=== PATIENT | female | born 1990 | race Caucasian/White ===

== ENCOUNTER 2017-07-26 20:24 | Emergency (ER) | payer BC ==
--- NOTE | 2017-07-26 20:46 | ER Document Report ---
ED Medical Screen (RME) - General Chief Complaint: Back Pain Stated Complaint: LOWER BACK PAIN/PAINFUL URINATION Time Seen by Provider: 07/26/17 20:41 Notes: 26-year-old female with 3 day history of left flank pain. He notes some sharp pain at the end of the urethra following urination. There is not really frequency. She did notice dark urine a couple days ago and is now clear. She does have a past history kidney stones, last one occurring while she was . Last menstrual period 2 weeks ago. I have greeted and performed a rapid initial assessment of this patient. A comprehensive ED assessment and evaluation of the patient, analysis of test results and completion of the medical decision making process will be conducted by additional ED providers. TRAVEL OUTSIDE OF THE [place] IN LAST 30 DAYS: No - Related Data Allergies/Adverse Reactions: No Known Allergies Allergy (Verified 10/07/12 12:43) Past Medical History - Social History Chew tobacco use (# tins/day): No Frequency of alcohol use: None Drug Abuse: None - Past Medical History Cardiac Medical History: Denies: Hx Coronary Artery Disease, Hx Heart Attack, Hx Hypertension Pulmonary Medical History: Denies: Hx Asthma, Hx Bronchitis, Hx COPD, Hx Pneumonia Neurological Medical History: Denies: Hx Cerebrovascular Accident, Hx Seizures Renal/ Medical History: Reports: Hx Kidney Stones. Denies: Hx Peritoneal Dialysis Musculoskeltal Medical History: Denies Hx Arthritis Past Surgical History: Reports: Hx Gynecologic Surgery. Denies: Hx Pacemaker - Immunizations Hx Diphtheria, Pertussis, Tetanus Vaccination: Yes Physical Exam - Vital signs Vitals: Temp Pulse Resp BP Pulse Ox 98.5 F 86 18 111/70 100 07/26/17 20:34 07/26/17 20:34 07/26/17 20:34 07/26/17 20:34 07/26/17 20:34 Course - Vital Signs Vital signs: Temp Pulse Resp BP Pulse Ox 98.5 F 86 18 111/70 100 07/26/17 20:34 07/26/17 20:34 07/26/17 20:34 07/26/17 20:34 07/26/17 20:34
[2017-07-26 20:57] LABS: APPEARANCE,URINE CLEAR; BILIRUBIN,URINE NEGATIVE (NEGATIVE); GLUCOSE, URINE NEGATIVE (NEGATIVE); KETONES,URINE NEGATIVE (NEGATIVE); LEUKOCYTE ESTERASE,URINE TRACE (NEGATIVE); NITRITE,URINE NEGATIVE (NEGATIVE); PROTEIN,URINE NEGATIVE (NEGATIVE); URINE SPECIFIC GRAVITY 1.002; UROBILINOGEN,URINE NEGATIVE mg/dL (<2.0)
[2017-07-26] MEDS ORDERED: PHENAZOPYRIDINE HCL 200 MG TABLET PO ONE (22:07)
[2017-07-26] MEDS ORDERED: CEPHALEXIN 500 MG CAPSULE PO ONE (22:07)
--- NOTE | 2017-07-26 22:14 | ER Document Report ---
ED GI/ - General Chief Complaint: Back Pain Stated Complaint: LOWER BACK PAIN/PAINFUL URINATION Time Seen by Provider: 07/26/17 20:41 Notes: The patient is a 26-year-old female who presents with 2 days of suprapubic pain and left flank pain. She is also having painful urination. Patient denies nausea, vomiting, fevers, hematuria, colicky pain, vaginal discharge, vaginal bleeding, diarrhea or constipation. TRAVEL OUTSIDE OF THE [place] IN LAST 30 DAYS: No - Related Data Allergies/Adverse Reactions: No Known Allergies Allergy (Verified 10/07/12 12:43) Past Medical History - General Information source: Patient - Social History Smoking Status: Never Smoker Chew tobacco use (# tins/day): No Frequency of alcohol use: None Drug Abuse: None Family History: Reviewed & Not Pertinent Patient has suicidal ideation: No Patient has homicidal ideation: No - Past Medical History Cardiac Medical History: Denies: Hx Coronary Artery Disease, Hx Heart Attack, Hx Hypertension Pulmonary Medical History: Denies: Hx Asthma, Hx Bronchitis, Hx COPD, Hx Pneumonia Neurological Medical History: Denies: Hx Cerebrovascular Accident, Hx Seizures Renal/ Medical History: Reports: Hx Kidney Stones. Denies: Hx Peritoneal Dialysis Musculoskeltal Medical History: Denies Hx Arthritis Past Surgical History: Reports: Hx Gynecologic Surgery. Denies: Hx Pacemaker - Immunizations Hx Diphtheria, Pertussis, Tetanus Vaccination: Yes Review of Systems - Review of Systems Notes: REVIEW OF SYSTEMS: CONSTITUTIONAL: -fevers, -chills EENT: -eye pain, -difficulty swallowing, -nasal congestion CARDIOVASCULAR:-chest pain, -syncope. RESPIRATORY: -cough, -SOB GASTROINTESTINAL: +suprapubic abdominal pain, -nausea, -vomiting, -diarrhea GENITOURINARY: +dysuria, -hematuria MUSCULOSKELETAL: +left flank pain, -neck pain SKIN: -rash or skin lesions. HEMATOLOGIC: -easy bruising or bleeding. LYMPHATIC: -swollen, enlarged glands. NEUROLOGICAL: -altered mental status or loss of consciousness, -headache, - neurologic symptoms PSYCHIATRIC: -anxiety, -depression. ALL OTHER SYSTEMS REVIEWED AND NEGATIVE. Physical Exam - Vital signs Vitals: Temp Pulse Resp BP Pulse Ox 98.5 F 86 18 111/70 100 07/26/17 20:34 07/26/17 20:34 07/26/17 20:34 07/26/17 20:34 07/26/17 20:34 - Notes Notes: PHYSICAL EXAMINATION: GENERAL: Well-appearing, well-nourished and in no acute distress. HEAD: Atraumatic, normocephalic. EYES: Pupils equal round and reactive to light, extraocular movements intact, sclera anicteric, conjunctiva are normal. ENT: nares patent, oropharynx clear without exudates. Moist mucous membranes. NECK: Normal range of motion, supple without lymphadenopathy LUNGS: Breath sounds clear to auscultation bilaterally and equal. No wheezes rales or rhonchi. HEART: Regular rate and rhythm without murmurs ABDOMEN: Soft, mild suprapubic tenderness, normoactive bowel sounds. No guarding, no rebound. No masses appreciated. BACK: Left CVA tenderness. EXTREMITIES: Normal range of motion, no pitting or edema. No cyanosis. NEUROLOGICAL: Cranial nerves grossly intact. Normal speech, normal gait. Normal sensory and motor exams. PSYCH: Normal mood, normal affect. SKIN: Warm, Dry, normal turgor, no rashes or lesions noted. Course - Re-evaluation Re-evalutation: Patient appears very well. She has left CVA tenderness with evidence of UTI on her urinalysis. Will treat her for pyelonephritis with Keflex and follow-up with her primary care physician. She is not . Given strict return precautions and she understands. - Vital Signs Vital signs: Temp Pulse Resp BP Pulse Ox 98.6 F 72 18 98/68 L 100 07/26/17 22:40 07/26/17 22:40 07/26/17 22:40 07/26/17 22:40 07/26/17 22:40 - Laboratory Laboratory results interpreted by me: 07/26/17 20:35 Urine Blood SMALL H Ur Leukocyte Esterase TRACE H Discharge - Discharge Clinical Impression: Pyelonephritis Condition: Stable Disposition: HOME, SELF-CARE Additional Instructions: PYELONEPHRITIS: Your evaluation shows evidence of pyelonephritis. This is an infection in the kidney. Typical symptoms are fever, pain in the flank, pain on urination, and frequent urination. Many cases of pyelonephritis can be treated at home. Hospital care may be necessary for patients who are very ill, or elderly or . Pyelonephritis is treated with antibiotics. Be sure to take all the medication as prescribed. Drink plenty of liquids (about three quarts per day) . You may take acetaminophen for fever. You should feel significantly improved within two days. You should have a recheck of your urine in about one week to insure that the infection is gone. Return for a re-examination if your symptoms worsen in any way -- such as high fever, shaking chills, severe weakness or dizziness, severe pain, or inability to pass your urine. ANTIBIOTIC THERAPY: You have been given an antibiotic prescription. It's important that you take all the medication, unless instructed otherwise by your physician. Failure to complete the entire course can result in relapse of your condition. Common side effects of antibiotics include nausea, intestinal cramping, or diarrhea. Women may develop vaginal yeast infections, and babies can get yeast (thrush) in the mouth following the use of antibiotics. Contact your physician if you develop significant side effects from this medication. Allergy to this antibiotic can result in hives, wheezing, faintness, or itching. If symptoms of allergy occur, stop the medication and call the doctor. CEPHALEXIN: The antibiotic you've been prescribed is a member of the cephalosporin class. This type of antibiotic covers a wide variety of infections, including those of the skin, lungs, and urinary tract. It's useful for staph infections. This antibiotic is slightly similar to the penicillin family. In rare cases , a person who is allergic to penicillin will also be allergic to this medication. If you have had a severe allergic reaction to penicillin, and have not taken this antibiotic since that time, notify your doctor. Antibiotics which cover many germs ("broad spectrum" antibiotics) are more likely to cause diarrhea or "yeast" infections. Women prone to vaginal yeast problems may suffer an attack after taking this antibiotic. In infants, oral thrush (white spots "stuck" on the cheek) or yeast diaper rash may result. See your doctor if these problems occur. Call at once if you develop itching, hives , shortness of breath, or lightheadedness. USE OF ACETAMINOPHEN (Tylenol): Acetaminophen may be taken for pain relief or fever control. It's much safer than aspirin, offering a wider range of "safe" dosages. It is safe during . Some brand names are Tylenol, Panadol, Datril, Anacin 3, Tempra, and Liquiprin. Acetaminophen can be repeated every four hours. The following are maximum recommended dosages: >89 pounds or adults 650 mg to 900 mg Acetaminophen can be repeated every four hours. Maximum dose not to exceed 4000 mg a day. FOLLOW-UP CARE: If you have been referred to a physician for follow-up care, call the physician s office for an appointment as you were instructed or within the next two days. If you experience worsening or a significant change in your symptoms, notify the physician immediately or return to the Emergency Department at any time for re-evaluation. Prescriptions: Cephalexin Monohydrate [Keflex 500 mg Capsule] 500 mg PO TID 7 Days capsule Phenazopyridine HCl [Pyridium 200 mg Tablet] 200 mg PO TID #15 tablet
[2017-07-26 22:42] VITALS: BP 98/68
== END 2017-07-26 22:42 | disposition home or self-care (01) ==
LOC: ER 20:24
DX: N12 Tubulo-interstitial nephritis, not specified as acute or chronic (principal)
CPT/HCPCS: 99283; 81025; 81001; J3490

== ENCOUNTER 2020-06-08 04:34 | Emergency (ER) | payer BC, OTHER ==
[2020-06-08] MEDS ORDERED: ONDANSETRON HCL INJ/PF 4 MG/2 ML SDV IV ONE (05:09)
[2020-06-08] MEDS ORDERED: NORMAL SALINE 1000 ML 1,000 ML IV ONE (05:09)
[2020-06-08] MEDS ORDERED: MORPHINE SULFATE 10 MG/ML INJ IV ONE (05:09)
--- NOTE | 2020-06-08 05:15 | ER Document Report ---
ED GI/ - General TRAVEL OUTSIDE OF THE [place] IN LAST 30 DAYS: No <KYRA MORALES - Last Filed: 06/08/20 08:07> <RICKIEMATIASLUTHER - Last Filed: 06/08/20 09:47> - General Chief Complaint: Abdominal Pain Stated Complaint: ABDOMINAL PAIN Time Seen by Provider: 06/08/20 04:59 Primary Care Provider: JOSE CARLOS HUIZAR MD [ACTIVE STAFF] - Follow up as needed DARRIAN BARBA MD [ACTIVE STAFF] - Follow up as needed - HPI Notes: Patient is a 21-year-old female with a history of endometriosis who presents with severe abdominal pain that began 6 hours ago. She describes the pain as sharp to her mid epigastrium. Patient endorses nausea, multiple episodes of vomiting, and diarrhea. She denies hematemesis, hematochezia, fever, chills, chest pain, and shortness of breath. Patient states she delivered a baby 8 weeks ago. Patient has a history of a laparotomy done in 2012 for her endometriosis. She reports eating a salad around 6:30PM this evening and denies any NSAID use. (KYRA MORALES) - Related Data Allergies/Adverse Reactions: No Known Allergies Allergy (Verified 10/07/12 12:43) Past Medical History - General Information source: Patient - Social History Smoking Status: Never Smoker Chew tobacco use (# tins/day): No Frequency of alcohol use: None Drug Abuse: None Family History: Reviewed & Not Pertinent Patient has homicidal ideation: No - Past Medical History Cardiac Medical History: Denies: Hx Coronary Artery Disease, Hx Heart Attack, Hx Hypertension Pulmonary Medical History: Denies: Hx Asthma, Hx Bronchitis, Hx COPD, Hx Pneumonia Neurological Medical History: Denies: Hx Cerebrovascular Accident, Hx Seizures Renal/ Medical History: Reports: Hx Kidney Stones. Denies: Hx Peritoneal Dialysis Musculoskeletal Medical History: Denies Hx Arthritis Past Surgical History: Reports: Hx Gynecologic Surgery. Denies: Hx Pacemaker - Immunizations Hx Diphtheria, Pertussis, Tetanus Vaccination: Yes <KYRA MORALES - Last Filed: 06/08/20 08:07> Review of Systems - Review of Systems Constitutional: No symptoms reported EENT: No symptoms reported Cardiovascular: No symptoms reported Respiratory: No symptoms reported Gastrointestinal: See HPI Genitourinary: No symptoms reported Female Genitourinary: No symptoms reported Musculoskeletal: No symptoms reported Skin: No symptoms reported Hematologic/Lymphatic: No symptoms reported Neurological/Psychological: No symptoms reported <ANDREWJAILENE McdowellKYRA M - Last Filed: 06/08/20 08:07> Physical Exam <KYRA MORALES - Last Filed: 06/08/20 08:07> - Vital signs Vitals: Temp 97.8 F 06/08/20 04:42 - Notes Notes: PHYSICAL EXAMINATION: VITALS: Vitals reviewed and within normal limits. GENERAL: Patient is tearful sitting up in bed clutching her abdomen. She is in moderate distress. HEAD: Atraumatic, normocephalic. EYES: Pupils equal, round, and reactive to light, extraocular movements intact, sclera anicteric, conjunctiva are normal. ENT: Nares patent. Moist mucous membranes. Oropharynx clear without exudates. NECK: Normal range of motion, supple without lymphadenopathy. LUNGS: Breath sounds clear to auscultation bilaterally and equal. No wheezes rales or rhonchi. HEART: Regular, rate, and rhythm without murmurs. ABDOMEN: Soft abdomen with normoactive bowel sounds. Tenderness to palpation to the right upper quadrant and epigastrium. Negative Olivera sign, negative McBurney's. No masses appreciated. EXTREMITIES: Normal range of motion, no pitting or edema. No cyanosis. NEUROLOGICAL: No focal neurological deficits. Moves all extremities sponta neously and on command. PSYCH: Normal mood, normal affect. SKIN: Warm, Dry, normal turgor, no rashes or lesions noted. (KYRA MORALES) Course - Laboratory Result Diagrams: 06/08/20 05:01 06/08/20 05:01 <ANDREWJAILENE McdowellKYRA M - Last Filed: 06/08/20 08:07> - Laboratory Result Diagrams: 06/08/20 05:01 06/08/20 05:01 - Diagnostic Test Radiology reviewed: Reports reviewed <LUTHER DAMIAN - Last Filed: 06/08/20 09:47> - Re-evaluation Re-evalutation: Patient is a 29-year-old female who presents with severe abdominal pain, nausea, and vomiting. Vital signs are within normal limits. On exam, patient is in moderate distress with tenderness to palpation to the right upper quadrant and midepigastrium. Negative Olivera's and McBurney sign. 1 L of normal saline, 4 mg IV morphine and 4 mg IV Zofran ordered. WBC elevated at 16.5. CMP negative and all values are within normal limits. Lipase normal at 64.5. Serum HCG negative. 06/08/20 07:22 I re-examined the patient. She is feeling better but still continues to have pain. On exam, tenderness to palpation to the mid epigastrum. US and UA still pending. 06/08/20 07:32 US Abdomen is negative. Will order 20mg IV Pepcid and CT abd/pelvis w/IV contrast for further evaluation as patient continues to be tender. 06/08/20 08:00 Hand off and sign out to Luther Damian NP. (KYRA MORALES) 06/08/20 09:01 CT suggestive of inflammatory bowel disease. Patient reports that she is always had issues with her bowels but chalked it up to a lot of stress. Patient reports that she does have a family history of Crohn's. I did advise her to follow-up with a fire sprinkler fitter. We will provide her with referrals for fire sprinkler fitter here in the area. Patient is sitting upright in no acute distress. Patient does report having mild tenderness to the epigastric region that is worse with coughing, deep breathing and position change that involves using the abdominal muscles. Abdomen is soft and unremarkable. 06/08/20 09:47 Patient was discharged from the emergency department no acute distress. Patient is not tachycardic, febrile or hypotensive. Patient did tolerate ice chips prior to discharge. (LUTHER DAMIAN) - Vital Signs Vital signs: Temp Pulse Resp BP Pulse Ox 97.8 F 77 16 108/61 100 06/08/20 04:44 06/08/20 09:28 06/08/20 09:28 06/08/20 09:28 06/08/20 09:28 - Laboratory Laboratory results interpreted by me: 06/08/20 05:01 WBC 16.5 H RBC 5.39 H MCH 26.9 L RDW 14.5 H Lymph % (Auto) 5.9 L Absolute Neuts (auto) 14.8 H Seg Neutrophils % 89.5 H - Diagnostic Test Radiology results interpreted by me: 06/08/20 08:49 Abdomen Ultrasound 06/08/20 05:08 IMPRESSION: Unremarkable exam. Abdomen/Pelvis CT 06/08/20 07:30 IMPRESSION: 1. Long segment wall thickening involving the terminal ileum with small volume pelvic ascites. Findings suggestive of enteritis with inflammatory bowel diseases included in the differential (Crohn's disease). 2. Normal appendix. (LUTHER DAMIAN) Discharge <KYRA MORALES - Last Filed: 06/08/20 08:07> <LUTHER DAMIAN - Last Filed: 06/08/20 09:47> - Discharge Clinical Impression: Gastroenteritis Nausea & vomiting Qualifiers: Vomiting type: unspecified Vomiting Intractability: non-intractable Qualified Code(s): R11.2 - Nausea with vomiting, unspecified Condition: Stable Disposition: HOME, SELF-CARE Instructions: Abdominal Pain ([facility]), Clear Liquid Diet ([facility]), Intravenous (IV) Fluids ([facility]) Additional Instructions: *Today are seen the emergency department for abdominal pain. We did obtain an ultrasound as well as a CAT scan. Your gallbladder and appendix unremarkable. Did note that you had some inflammation within the bowels as well as inflammatory bowel disease. You do need to follow-up with a fire sprinkler fitter for further evaluation, especially due to the fact that you have a history of Crohn's within the family. Over the next 24 hours start out with a clear liquid diet and advance as tolerated. Please return the emergency department if you develop any of the below symptoms to include worsening pain, uncontrollable vomiting and diarrhea, fever or any new or worsening symptoms. Gastroenteritis You most likely have gastroenteritis. This is an irritation of the stomach and intestinal tract. It's usually caused by a virus, but can also be caused by bacteria, toxins that cause food poisoning, or excessive alcohol intake. Symptoms may include fever, painful abdominal cramps, nausea, vomiting, and diarrhea. Start with small amounts (two to six ounces) of clear liquids (soft drinks, herb teas, broth, etc). Try to take fluids frequently even if you are vomiting, to prevent dehydration. When liquids are being consumed successfully, advance to small amounts of bland food (mashed potato, toast) for 6 - 12 hours. Gastroenteritis rarely requires medication. It goes away by itself. Use good handwashing so you don't spread germs. Wash underwear in very hot water. If symptoms are severe, talk to the doctor. Call your physician if blood appears in your vomitus or stool, if vomiting lasts longer than 24 hours, if the abdominal pain worsens or becomes localized to one area, or if you develop high fever. Abdominal Pain There are many causes of abdominal pain. Pain can mean a serious problem requiring surgery (such as appendicitis). It can also be an innocent problem that goes away on its own (such as a viral infection). Often, time must pass to determine the cause of pain. The physician does not feel that hospitalization is necessary, at present. Things may change within the next 24 hours. Call the doctor or come back for re- examination if any problems occur, such as: (1) Pain that becomes more severe, steady, or becomes concentrated in one specific area. Also, pain that is more severe with movement or coughing. (2) Vomiting that persists or becomes more frequent. (3) Blood in the vomitus, urine, or bowel movements. Blood in the stool may have a tarry or black appearance. (4) Shaking chills or fever greater than 100 degrees F. (5) The abdomen becomes more distended or swollen. (6) Bowel movements cease. (7) Failure to improve as expected. Prescriptions: Dicyclomine HCl [Bentyl 20 mg Tablet] 20 mg PO QID PRN #30 tablet PRN Reason: Famotidine [Pepcid] 20 mg PO DAILY #30 tablet Promethazine HCl [Phenergan 25 mg Tablet] 1 tab PO Q6H PRN #15 tablet PRN Reason: Ondansetron [Zofran Odt 4 mg Tablet] 1 tab PO Q4H PRN #15 tab.rapdis PRN Reason: For Nausea/Vomiting Forms: Parent Work Note Referrals: JOSE CARLOS HUIZAR MD [ACTIVE STAFF] - Follow up as needed DARRIAN BARBA MD [ACTIVE STAFF] - Follow up as needed
[2020-06-08 05:38] LABS: ABSOLUTE MONOCYTES (AUTO) 0.7 10^3/uL (0.1-1.4); ABSOLUTE NEUT (AUTO) 14.8 10^3/uL (1.7-8.2); BASOPHILS % (AUTO) 0.3 % (0-2); EOSINOPHILS % (AUTO) 0.2 % (0-6); HEMOGLOBIN 14.5 g/dL (12.0-15.5); LYMPHOCYTES % (AUTO) 5.9 % (13-45); MEAN CORPUSCULAR HEMOGLOBIN 26.9 pg (27.0-33.4); MEAN CORPUSCULAR HGB CONC 33.7 g/dL (32.0-36.0); MEAN CORPUSCULAR VOLUME 80 fl (80-97); MONOCYTES % (AUTO) 4.1 % (3-13); PLATELET COUNT 315 10^3/uL (150-450); RED BLOOD COUNT 5.39 10^6/uL (3.72-5.28); RED CELL DISTRIBUTION WIDTH 14.5 % (11.5-14.0); SEGMENTED NEUTROPHILS % (AUTO) 89.5 % (42-78); TOTAL CELLS COUNTED % (AUTO) 100 %; WHITE BLOOD COUNT 16.5 10^3/uL (4.0-10.5)
[2020-06-08 05:43] LABS: ALBUMIN 4.9 g/dL (3.5-5.0); ALKALINE PHOSPHATASE 63 U/L (38-126); ANION GAP 12 (5-19); ASPARTATE AMINO TRANSFERASE 30 U/L (14-36); BILIRUBIN,DIRECT 0.3 mg/dL (0.0-0.4); BILIRUBIN,TOTAL 0.5 mg/dL (0.2-1.3); BLOOD UREA NITROGEN 20 mg/dL (7-20); CALCIUM 9.8 mg/dL (8.4-10.2); CARBON DIOXIDE 26 mmol/L (22-30); CHLORIDE 101 mmol/L (98-107); GLUCOSE 91 mg/dL (75-110); POTASSIUM 4.5 mmol/L (3.6-5.0); TOTAL PROTEIN 7.3 g/dL (6.3-8.2)
--- NOTE | 2020-06-08 07:24 | RADIOLOGY REPORT (SQ) ---
Ultrasound right upper quadrant on 06/08/2020 at 6:44 AM CLINICAL INDICATION: Right upper quadrant abdominal pain COMPARISON: None FINDINGS: Multiple sonographic images are obtained throughout the right upper quadrant, both transverse and sagittal images are obtained. Visualized aorta is unremarkable. Visualized pancreas is unremarkable. Visualized liver is homogeneous without focal liver lesion. Portal vein is patent and with a normal directional flow. Right kidney shows no hydronephrosis. Common duct measures 4 mm which is within normal limits mitigating against obstruction of the biliary tree. There are no gallstones, gallbladder wall thickening or pericholecystic fluid. No free fluid is noted in the abdomen. IMPRESSION: Unremarkable exam.
[2020-06-08] MEDS ORDERED: FAMOTIDINE INJ/PF 20 MG/2 ML SDV IV ONE (07:30)
--- NOTE | 2020-06-08 08:43 | RADIOLOGY REPORT (SQ) ---
EXAM DESCRIPTION: CT ABD/PELVIS WITH IV ONLY IMAGES COMPLETED DATE/TIME: 06/08/2020 8:14 am REASON FOR STUDY: abdominal pain COMPARISON: 06/08/2020 ultrasound TECHNIQUE: CT scan of the abdomen and pelvis performed using helical scanning technique with dynamic intravenous contrast injection. No oral contrast. Images reviewed with lung, soft tissue, and bone windows. Reconstructed coronal and sagittal MPR images reviewed. Delayed images for evaluation of the urinary system also acquired. All images stored on PACS. All CT scanners at this facility use dose modulation, iterative reconstruction, and/or weight based d osing when appropriate to reduce radiation dose to as low as reasonably achievable (ALARA). [facility]: Dose Right [facility]: CareDose [facility]: Dose Right [facility]: Teradose 4D [facility]: [employer] Systems CONTRAST TYPE AND DOSE: contrast/concentration: Isovue 350.00 mmol/ml; Total Contrast Delivered: 75. 0 ml; Total Saline Delivered: 59.0 ml RENAL FUNCTION: None required. The patient is less than 50 years old. RADIATION DOSE: CT Rad equipment meets quality standard of care and radiation dose reduction techniq ues were employed. CTDIvol: 7.5 - 10.0 mGy. DLP: 953 mGy-cm.. LIMITATIONS: None. FINDINGS: LOWER CHEST: No significant findings. No nodules or infiltrates. LIVER: Normal size. No masses. No dilated ducts. SPLEEN: Normal size. No focal lesions. PANCREAS: No masses. No significant calcifications. No adjacent inflammation or peripancreatic fluid collections. Pancreatic duct not dilated. GALLBLADDER: No identified stones by CT criteria. No inflammatory changes to suggest cholecystitis. ADRENAL GLANDS: No significant masses or asymmetry. RIGHT KIDNEY AND URETER: No solid masses. No significant calcifications. No hydronephrosis or hyd roureter. LEFT KIDNEY AND URETER: No solid masses. No significant calcifications. No hydronephrosis or hydr oureter. AORTA AND VESSELS: No aneurysm. No dissection. Renal arteries, SMA, celiac without stenosis. RETROPERITONEUM: No retroperitoneal adenopathy, hemorrhage or masses. BOWEL AND PERITONEAL CAVITY: Long segment wall thickening involving the the terminal ileum with mild mesenteric engorgement and small volume pelvic ascites. No free intraperitoneal gas. No evidence of intestinal obstruction. APPENDIX: Normal. PELVIS: Small volume low density pelvic ascites. ABDOMINAL WALL: No masses. No hernias. BONES: No significant or acute findings. OTHER: No other significant finding. IMPRESSION: 1. Long segment wall thickening involving the terminal ileum with small volume pelvic a scites. Findings suggestive of enteritis with inflammatory bowel diseases included in the differenti al (Crohn's disease). 2. Normal appendix. TECHNICAL DOCUMENTATION: JOB ID: [id number] Quality ID # [id number]: Final reports with documentation of one or more dose reduction techniques (e.g., Au tomated exposure control, adjustment of the mA and/or kV according to patient size, use of iterative reconstruction technique) 2010 [employer]- All Rights Reserved Reading location - IP/workstation name: [facility]-
[2020-06-08 09:29] VITALS: BP 108/61
== END 2020-06-08 09:28 | disposition home or self-care (01) ==
LOC: ER 04:34
DX: K52.9 Noninfective gastroenteritis and colitis, unspecified (principal); R11.2 Nausea with vomiting, unspecified; R10.13 Epigastric pain; R10.811 Right upper quadrant abdominal tenderness; R10.816 Epigastric abdominal tenderness; R18.8 Other ascites; Z83.79 Family history of other diseases of the digestive system
CPT/HCPCS: 99285; 96361; 96374; 96375; 83690; 36415; 84703; 85025; 80053; 76705; 74177; J2270; J2405; J7030; S0028